=== PATIENT | male | born 1980 | race Hispanic/Latino ===

== ENCOUNTER 2019-06-20 08:34 | Emergency (ER) | payer SELFPAY ==
[2019-06-20] MEDS ORDERED: IBUPROFEN 600 MG TABLET ONE (09:12)
== END 2019-06-20 10:29 | disposition home or self-care (01) ==
LOC: EDH 08:34
DX: M25.561 Pain in right knee (principal); X50.1XXA Overexertion from prolonged static or awkward postures, initial encounter; Y93.89 Activity, other specified; Y92.009 Unspecified place in unspecified non-institutional (private) residence as the place of occurrence of the external cause; Y99.8 Other external cause status
CPT/HCPCS: 29505; 73562